=== PATIENT | female | born 1970 | race Caucasian/White ===

== ENCOUNTER 2021-02-09 16:59 | Emergency (ER) | payer BC ==
[2021-02-09] MEDS ORDERED: Diphtheria,Pertussis(Acell),Tetanus Vaccine 0.5 ML Syringe IM ONE (18:12)
[2021-02-09] MEDS ORDERED: Lidocaine 1% with EPINEPHrine 1:100,000 50 ML MDV INFILT ONE (18:13)
[2021-02-09] MEDS ORDERED: Bacitracin Oint 1 GM U/D Packet TOP ONE (18:13)
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
== END 2021-02-09 19:03 | disposition home or self-care (01) ==
LOC: JP.ED 16:59
DX: S51.012A Laceration without foreign body of left elbow, initial encounter (principal); Z23 Encounter for immunization; V86.99XA Unspecified occupant of other special all-terrain or other off-road motor vehicle injured in nontraffic accident, initial encounter
CPT/HCPCS: 12001; 90471; 90715; 99283-25